=== PATIENT | male | born 1990 | race Caucasian/White ===

== ENCOUNTER 2024-03-25 07:52 | Outpatient (AMB) | payer OTHER, SELFPAY ==
--- NOTE | 2024-03-25 08:05 | MHC.PC.OV ---
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 Transferring care from [facility]. Medical records have not been requested and have not received. Watch And Clock Repair Clerk Required: No Patent Legal Assistant: Not Required per policy Accompanied by: Self / Same As Patient Allergies No Known Allergies Allergy (Verified 03/25/24 08:11) Tobacco use date assessed: 03/25/24 Dental Screening Dental Screen Date: 03/25/24 Did you have a dental visit in the last 12 months?: No Did you have a dental problem in the last 6 months where you did not have access to dental care?: No Was dental information given to patient?: No [facility] Surgical History (Updated 03/25/24 @ 08:12 by JANET Del Castillo) No pertinent past surgical history Social History (Updated 03/25/24 @ 08:12 by JANET Del Castillo) Housing: House Alcohol intake: current Alcohol intake frequency: a few times a week Patient Tobacco Use Status: Never used Tobacco e-Cigarette/Vaping Use: Never Used Second Hand Smoke Exposure: No service: No Current occupational status: employed 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 1. Little interest or pleasure in doing things: not at all 2. Feeling down, depressed, or hopeless: not at all 3. Trouble falling or staying asleep, or sleeping too much: not at all 4. Feeling tired or having little energy: not at all 5. Poor appetite or overeating: not at all 6. Feeling bad about yourself - or that you are a failure or have let yourself or your family down: not at all 7. Trouble concentrating on things, such as reading the newspaper or watching television: not at all 8. Moving or speaking so slowly that other people could have noticed. Or the opposite - being so fidgety or restless that you have been moving around a lot more than usual: not at all 9. Thoughts that you would be better off or of hurting yourself in some way: not at all Total score: 0 Depression Screening Interpretation: Negative Depression Screening Done: Yes Source: Developed by Drs. Jayden Morataya, Elva Chandler, Tu Sarah and colleagues, with an educational boom from [employer]. Thrive Questionnaire Date Thrive assessed: 03/25/24 I am a: Patient What is your living situation today?: I have a steady place to live Within the past 12 months, did the food you bought not last and you didn't have the money to get more?: Never true Within the past 12 months, did you worry whether your food would run out before you got money to buy more?: Never true Do you have trouble paying for medicines?: No Do you have trouble getting transportation to medical appointments?: No Do you have trouble paying your heating and electricity bill?: No Do you have trouble taking care of your child, family member or friend?: No Do you have trouble with day-to-day activities such as bathing, preparing meals, shopping, managing finances, etc.?: No Are you currently unemployed and looking for a job?: No Are you interested in more education?: No Please select the resources that you would like help with: None Currently or been in a relationship where the following occur: No concerns reported THRIVE Score: 0 AUDIT C Alcohol Use Questionnaire (AUDIT-C) 1. How often do you have a drink containing alcohol?: 2-4 times a month 2. How many drinks containing alcohol do you have on a typical day when you are drinking?: 1 or 2 3. How often do you have six or more drinks on one occasion?: Never Total Score: 2 CIERRA-7 AMB Questionnaire CIERRA-7 Date CIERRA - 7 assessed: 03/25/24 Feeling nervous, anxious, or on edge: 0 = Not at all Not being able to stop or control worryin = Not at all Worrying too much about different things: 0 = Not at all Trouble relaxin = Not at all Being so restless that it is hard to sit still: 0 = Not at all Becoming easily annoyed or irritable: 0 = Not at all Feeling afraid as if something awful might happen: 0 = Not at all Total CIERRA-7 score (0-4 normal; 5-9 mild; 10-14 moderate; 15-21 severe): 0 Source: Developed by Drs. Jayden Morataya, Elva Chandler, Tu Sarah and colleagues, with an educational boom from [employer]. Physical exam (Primary Care) Vital Signs: Last Vital Signs Pulse 55 03/25/24 08:07 BP 112/66 03/25/24 08:07 Pulse Ox 98 03/25/24 08:07 Oxygen Delivery Method Room Air 03/25/24 08:07 BMI result Body Mass Index 23.7 Tobacco/Smoking Status: Tobacco use Status Tobacco use date assessed 03/25/24 03/25/24 08:14 Patient Tobacco Use Status Never used Tobacco 03/25/24 08:14 e-Cigarette/Vaping Use Never Used 03/25/24 08:14 PHQ-9: PHQ-9 Score PHQ-9: Total score 0 03/25/24 08:14 Depression Screening Interpretation: Negative Thrive Assessment: Date of Thrive Assessment Date Thrive assessed 03/25/24 03/25/24 08:14 Currently or been in a relationship where the following occur: No concerns reported Coding Level of Care Code Est Pt Prev Care 18-39y(51466) Diagnoses Annual physical exam Z00.00 Assessment & Plan Assessment & Plan (1) Annual physical exam: Code(s): Z00.00 - Encounter for general adult medical examination without abnormal findings Plan: See below. Fasting bw ordered. Scribe Plan - Not visible on output: History of Present Illness The patient is a 33-year-old male presenting for a routine physical examination. The patient reports a history of gout, which he manages through hydration and diet. He seldom uses the prescribed medication for gout as he finds these lifestyle modifications sufficient in prevention and management. His last gout attack occurred during the summer. The patient has also experienced intermittent gastroesophageal reflux disease (GERD), which began approximately one month ago. The symptoms included stomach acid-related pain that responded well to a proton pump inhibitor (PPI). He noted improvement with this treatment, with no recent recurrence of symptoms. 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 - Exercise: Engages in rock climbing as a form of exercise at a local [employer] in [place]. - Family: with one child on the way, expected in late July. - Substance Use: Denies smoking and substance use. - Diet: Manages gout primarily through hydration and dietary adjustments. Review of Systems - Gastrointestinal: Reports past stomach pains with presumed acid release, addressed with PPI. Physical Exam - Abdominal- No unusual findings noted during palpation. Results Plan - Gout: Continue current management with dietary adjustment and hydration; limited use of medication as per patient preference. - Intermittent GERD: Observe for any recurrence of symptoms. Consider further management if symptoms become persistent. - Conduct fasting blood work to establish baseline metrics, including kidney and liver function, anemia screening, and cholesterol levels. - Routine physical examination: Schedule annual visit next year for follow-up. Patient was informed and verbally consented to the use of an ambient scribe for clinic note documentation during this visit. Discussion Notes During the visit, we discussed the patient's health management strategies, specifically focusing on his infrequent medication use for gout and lifestyle modifications, which include hydration and a dietary regimen. We also talked about his recent episode of intermittent gastroesophageal reflux disease and the successful management with a proton pump inhibitor. I advised him to monitor his symptoms, especially concerning GERD, and to reach out if issues persist or worsen. Fasting blood work was recommended to check various health markers, and the patient was briefed on necessary preparations for this test. We reiterated the importance of an annual check-up, which has been scheduled for the same time next year. Patient Instructions
[2024-03-25 08:07] VITALS: BP 112/66; PULSE 55; O2SAT 98; BMI 23.7
== END 2024-03-25 08:23 | disposition home or self-care (01) ==
PROVIDERS: PCP Internal Medicine; Visit Provider Internal Medicine
DX: Z00.00 Encounter for general adult medical examination without abnormal findings (principal)

== ENCOUNTER 2025-04-02 13:23 | Outpatient (AMB) | payer OTHER, SELFPAY ==
--- NOTE | 2025-04-02 13:26 | A.OFFPC_ITS ---
Vital Signs 04/02/25 13:27 Height 5 ft 10 in Weight 177 lb 6 oz BMI 25.4 BP 112/68 Blood Pressure Location Lt brachial Position Sitting Pulse 53 Pulse Source Pulse Oximeter Temp 97.3 F Temp Source Temporal Artery Scan Pulse Oximetry (%) 97 Oxygen Delivery Method Room Air Intake Visit Reasons: PE Intake Note: Patient is here today for a physical. Industrial Ecology Technician Required: No Research Dietitian: Not Required per policy Accompanied by: Self / Same As Patient Allergies No Known Allergies Allergy (Verified 04/02/25 13:27) Tobacco use date assessed: 04/02/25 Dental Screening Dental Screen Date: 04/02/25 Did you have a dental visit in the last 12 months?: Yes Did you have a dental problem in the last 6 months where you did not have access to dental care?: No Was dental information given to patient?: Patient has dentist HPI HPI Comments History of Present Illness Details History of Present Illness - The patient is a 34-year-old male pres enting for a routine physical exam with no specific health concerns. - He reports he is not currently taking any medications. - He has a [facility], for which he took indomethacin, but he has not taken it in the last couple of months. - Family history is negative for prostat e and colon cancer. Social History - The patient works from home for a [employer]. - He has recently resumed rock climbing for exercise after a 7-month break. - He has a 7-month-old infant at home wh ose waking at night can interrupt his sleep. 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 1. Little interest or pleasure in doing things: not at all 2. Feeling down, depressed, or hopeless: not at all 3. Trouble falling or staying asleep, or sleeping too much: not at all 4. Feeling tired or having little energy: not at all 5. Poor appetite or overeating: not at all 6. Feeling bad about yourself - or that you are a failure or have let yourself or your family down: not at all 7. Trouble concentrating on things, such as reading the newspaper or watching television: not at all 8. Moving or speaking so slowly that other people could have noticed. Or the opposite - being so fidgety or restless that you have been moving around a lot more than usual: not at all 9. Thoughts that you would be better off or of hurting yourself in some way: not at all Total score: 0 Depression Screening Interpretation: Negative Depression Screening Done: Yes Source: Developed by Drs. Jayden Morataya, Elva Chandler, Tu Sarah and colleagues, with an educational boom from [employer]. Thrive Questionnaire Date Thrive assessed: 04/02/25 I am a: Patient What is your living situation today?: I have a steady place to live Within the past 12 months, did the food you bought not last and you didn't have the money to get more?: Never true Within the past 12 months, did you worry whether your food would run out before you got money to buy more?: Never true Do you have trouble paying for medicines?: No Do you have trouble getting transportation to medical appointments?: No Do you have trouble paying your heating and electricity bill?: No Do you have trouble taking care of your child, family member or friend?: No Do you have trouble with day-to-day activities such as bathing, preparing meals, shopping, managing finances, etc.?: No Are you currently unemployed and looking for a job?: No Are you interested in more education?: No Please select the resources that you would like help with: None Currently or been in a relationship where the following occur: No concerns reported THRIVE Score: 0 AUDIT C Alcohol Use Questionnaire (AUDIT-C) 1. How often do you have a drink containing alcohol?: 2-4 times a month 2. How many drinks containing alcohol do you have on a typical day when you are drinking?: 1 or 2 3. How often do you have six or more drinks on one occasion?: Less than monthly Total Score: 3 CIERRA-7 AMB Questionnaire CIERRA-7 Date CIERRA - 7 assessed: 04/02/25 Feeling nervous, anxious, or on edge: 0 = Not at all Not being able to stop or control worryin = Not at all Worrying too much about different things: 0 = Not at all Trouble relaxin = Not at all Being so restless that it is hard to sit still: 0 = Not at all Becoming easily annoyed or irritable: 0 = Not at all Feeling afraid as if something awful might happen: 0 = Not at all Total CIERRA-7 score (0-4 normal; 5-9 mild; 10-14 moderate; 15-21 severe): 0 Source: Developed by Drs. Jayden Morataya, Elva Chandler, Tu Sarah and colleagues, with an educational boom from [employer]. Review of Systems Narrative Review of Systems - General: Denies any health concerns. - Sleep is reported as good but is interrupted by his 7-month-old . - Eyes: Reports good vision and ability to drive at night. - Denies seeing halos around lights. - Ears: Reports good hearing. Physical exam (Primary Care) Vital Signs: Last Vital Signs Temp 97.3 F 04/02/25 13:27 Pulse 53 04/02/25 13:27 BP 112/68 04/02/25 13:27 Pulse Ox 97 04/02/25 13:27 Oxygen Delivery Method Room Air 04/02/25 13:27 BMI result Body Mass Index 25.4 Tobacco/Smoking Status: Tobacco use Status Tobacco use date assessed 04/02/25 04/02/25 13:31 Patient Tobacco Use Status Never used Tobacco 04/02/25 13:31 e-Cigarette/Vaping Use Never Used 04/02/25 13:31 PHQ-9: PHQ-9 Score PHQ-9: Total score 0 04/02/25 13:31 Depression Screening Interpretation: Negative Thrive Assessment: Date of Thrive Assessment Date Thrive assessed 04/02/25 04/02/25 13:31 Currently or been in a relationship where the following occur: No concerns reported Narrative Physical Exam General: Cooperative and healthy appearing Nutritional Appearance: Well nourished Orientation/consciousness: Patient oriented x3 Limitations: No limitations Head: Normal to inspection General: Appearance normal, both eyes and all related structures Neck: Normal visual inspection Chest: Normal palpation of entire chest wall Respiratory: Normal respiratory effort Neurology: Patient oriented x3 Coding Level of Care Code Est Pt Prev Care 18-39y(68090) Complex visit Add On G2211 Diagnoses Hyperlipidemia E78.5 Encounter for annual physical exam Z00.00 Assessment & Plan Assessment & Plan (1) Hyperlipidemia: Code(s): E78.5 - Hyperlipidemia, unspecified (2) Encounter for annual physical exam: Code(s): Z00.00 - Encounter for general adult medical examination without abnormal findings Plan Plan - Will order fasting blood work. - Recommended annual follow-up visits. Discussion Notes I discussed with the patient that his physical exam was normal. I informed him that I will order fasting blood work and instructed him on how to proceed with getting the labs done at the hospital across the street, noting that he should fast after midnight and that no appointment is necessary. I recommended he follow-up annually for his physical exam. Patient Instructions - Proceed to the lab for fasting blood work. - Do not eat or drink anything after midnight the night before your blood test. - The lab is located in the main hospital across the street; you do not need an appointment. - Please note the lab is not open on Sundays. - Return to the clinic in one year for your next annual physical. Orders: Orders Complete Blood Count no Diff Today E78.5 - Hyperlipidemia, unspecified Lipid Panel Today E78.5 - Hyperlipidemia, unspecified UA and rflx microscopic Today E78.5 - Hyperlipidemia, unspecified Basic Metabolic Panel Today E78.5 - Hyperlipidemia, unspecified Liver Panel Today E78.5 - Hyperlipidemia, unspecified Thyroid Stimulating Hormone Today E78.5 - Hyperlipidemia, unspecified
[2025-04-02 13:27] VITALS: BP 112/68; PULSE 53; TEMP 36.3; O2SAT 97; BMI 25.4
== END 2025-04-02 17:10 | disposition home or self-care (01) ==
LOC: HO.HMCH 13:24
PROVIDERS: PCP Internal Medicine; Visit Provider Internal Medicine
DX: Z00.00 Encounter for general adult medical examination without abnormal findings (principal); E78.5 Hyperlipidemia, unspecified